=== PATIENT | female | born 1955 | race Two or more races ===

== ENCOUNTER 2025-01-10 09:35 | Inpatient (IN) | payer MEDICARE, OTHER ==
[~2025-01-10] VITALS: Ht 160 cm; Wt 74.0 kg
--- NOTE | 2025-01-10 11:03 | ED.PDOC ---
Eye-HPI HPI Comments 69-year-old female with a history of hypertension and diabetes brought in by family for evaluation of right sided upper oral pain and right facial pain and swelling, onset 3 days ago. Patient states she had a dental cleaning 5 days ago during which she had a local anesthetic injection in her right upper mouth. She states she did not have any other dental intervention aside from the cleaning. She states 2 days later she developed pain and swelling in her right upper mouth area which spread to the right side of her face, associated with a severe right- sided headache. She denies any fever, vision changes, nausea, vomiting or focal weakness. Chief Complaint: Headache Time Seen by MD: 10:45 Reviewed Notes: Nurses Notes, Medications, Allergies Information Source: Patient, Relative (GrandChild) Mode of Arrival: Ambulatory Timing: Days Duration: Since onset Past Medical History PAST MEDICAL HISTORY: DM, HTN Surgical History (Other): C-spine surgery FINANCIAL ACCOUNTANT History: Denies all FINANCIAL ACCOUNTANT Hx Family History Family History: Reviewed,noncontributory to illness Social History Smoker: Non-Smoker Alcohol: Denies ETOH Use Drugs: Denies Drug Use Lives In: Home All Other Systems: Reviewed and Negative (Comprehensive systems review obtained and negative except for what is stated in the HPI.) Physical Exam General Appearance: Mild Distress HEENT: Other (Pupils symmetric. Right upper gingival soft tissue tenderness and swelling, right mid facial and infraorbital erythema, moderate edema and tenderness.) Neck: Full Range of Motion, Normal Inspection Respiratory: Lungs Clear, No Accessory Muscle Use, No Respiratory Distress, Normal Breath Sounds Cardiovascular: No Edema, No JVD, Regular Rate/Rhythm Breast Exam: Deferred Gastrointestinal: Non Tender, Soft Genitalia: Deferred Pelvic: Deferred Rectal: Deferred Extremities: Normal inspection, Normal range of motion, Non-tender, No pedal edema Neurologic: Alert (Oriented x4), Normal Affect, Normal Mood, Other (Ambulatory) Cerebellar Function: NOT DONE Reflexes: NOT DONE Skin: Dry, Normal Color, Warm Lymphatic: NOT DONE Was a procedure done? Was a procedure done?: No EENT DIFF Eye: N/A Ear: N/A Nose: N/A Mouth: Other (Gingivitis, dental caries, dental abscess, facial cellulitis/abscess, allergic reaction, among others) X-Ray, Labs, Meds, VS Vital Signs Date Time Temp Pulse Resp B/P (MAP) Pulse Ox O2 Delivery O2 Flow Rate FiO2 01/10/25 12:38 99.9 93 17 105/65 (78) 95 99.9 01/10/25 12:37 93 17 105/65 01/10/25 12:15 84 20 98 Room Air* 0 21 01/10/25 12:07 108 20 109/93 01/10/25 12:07 99.3 107 20 109/93 (98) 95 99.3 01/10/25 12:07 107 20 95 Room Air 01/10/25 09:37 98.4 120 18 118/80 96 98.4 Lab Test 01/10/25 11:11 Range/Units White Blood Count 21.3 H 4.4-10.8 10^3/uL Red Blood Count 6.09 H 4.0-5.20 10^6/uL Hemoglobin 16.8 H 12.2-16.2 g/dL Hematocrit 50.1 H 36.0-46.0 % Mean Corpuscular Volume 82.2 80.0-100.0 fL Mean Corpuscular Hemoglobin 27.5 L 28.0-32.0 pg Mean Corpuscular Hemoglobin Concent 33.5 32.0-36.0 g/dL Red Cell Distribution Width 15.3 H 11.8-14.3 % Platelet Count 416 140-450 10^3/uL Mean Platelet Volume 9.0 6.9-10.8 fL Neutrophils (%) (Auto) 83.4 H 37.0-80.0 % Lymphocytes (%) (Auto) 6.8 L 10.0-50.0 % Monocytes (%) (Auto) 8.9 0.0-12.0 % Eosinophils (%) (Auto) 0.2 0.0-7.0 % Basophils (%) (Auto) 0.7 0.0-2.0 % Neutrophils # (Auto) 17.8 H 1.6-8.6 10 ^3/uL Lymphocytes # (Auto) 1.4 0.4-5.4 10 ^3/uL Monocytes # (Auto) 1.9 H 0-1.3 10 ^3/uL Eosinophils # (Auto) 0 0-0.8 10 ^3/uL Basophils # (Auto) 0.2 0-0.2 10 ^3/uL Nucleated Red Blood Cells 0.0 % Sodium Level 138 136-145 mmol/L Potassium Level 4.1 3.5-5.1 mmol/L Chloride Level 102 98-107 mmol/L Carbon Dioxide Level 23 20-31 mmol/L Anion Gap 13 5-15 Blood Urea Nitrogen 16 9-23 mg/dL Creatinine 0.82 0.550-1.02 mg/dL Glomerular Filtration Rate Calc 78 >90 mL/min BUN/Creatinine Ratio 19.5 10.0-20.0 Serum Glucose 144 H 74-106 mg/dL Lactic Acid Level 1.9 0.4-2.0 mmol/L Calcium Level 10.2 8.7-10.4 mg/dL Current Medications Medications (Trade) Dose Ordered Sig/Hasmukh Route Start Time Stop Time Status Last Admin Morphine Sulfate 4 mg ONCE ONCE IV 01/10/25 11:00 01/10/25 11:02 DC 01/10/25 12:07 Ondansetron HCl (Zofran) 4 mg ONCE ONCE IV 01/10/25 11:00 01/10/25 11:02 DC 01/10/25 12:07 Clindamycin Phosphate 50 ml @ 50 mls/hr ONCE ONCE IV 01/10/25 11:00 01/10/25 11:59 DC 01/10/25 12:08 PROCEDURE(s): FAC2C - MAXILLOFACIAL WITHOUT REASON: Right facial swelling after dental cleaning ORDER NUMBER(s): [id number], ACCESSION NUMBER(s): [id number] CT MAXILLOFACIAL WITHOUT INDICATION: Right facial swelling after dental cleaning EXAM DATE: 01/10/2025 11:28 AM COMPARISON: None RADIATION DOSE: CTDIvol: 66.97 mGy, DLP: 1230.21 mGy*cm PROCEDURE: Using the CT scanner, contiguous noncontrast scans were obtained from above the orbital rims to below the mandible. Coronal and sagittal reformatted images were then generated. All CT scans at this medical facility are performed using dose modulation techniques as appropriate to a performed exam including the following: Automated exposure control was utilized; adjustment of the MA and/or KV according to patient size; and use of iterative reconstruction technique. FINDINGS: The facial bones, including the orbits and paranasal sinuses are intact without evidence of fracture. The paranasal sinuses, mastoid air cells and middle ear cavities are normally aerated. The orbital contents are normal. Mild right upper lip and malar soft tissue edema. Post surgical changes from cervical spinal hardware with laminectomy changes are noted. IMPRESSION: Mild right upper lip and malar soft tissue edema. No acute fracture CT findings of the maxillofacial region. X-Ray, Labs, Meds, VS Comment 69-year-old female with a history of hypertension and diabetes presenting with right upper mouth and right facial pain, swelling and headache 2 days after a dental cleaning during which she received a local anesthetic injection in her upper mouth area Initial vitals remarkable for heart rate 120 Exam remarkable for right upper oral and right mid facial and infraorbital swelling, tenderness and erythema Rhythm strip independently interpreted by me: Sinus tach, rate 120, no ectopy. CT maxillofacial IMPRESSION: Mild right upper lip and malar soft tissue edema. No acute fracture CT findings of the maxillofacial region. CBC remarkable for WBC 21.3, basic metabolic panel unremarkable, lactate 1.9 Patient treated with the following in the ED: 1 L 0.9 normal saline IV bolus, clindamycin 900 mg IV, morphine 4 mg IV, Zofran 4 mg IV On re-evaluation, patient states pain has improved. Vitals were stable. Plan is to admit the patient for IV antibiotics and pain control. Time of 1ST Reevaluation: 11:15 Reevaluation 1ST: Unchanged Patient Education/Counseling: Diagnosis, Treatment, Need For Follow Up Family Education/Counseling: Diagnosis, Treatment SEPSIS Sepsis Screen Date sepsis recognized/suspect: Jan 10, 2025 Time Sepsis recognized/suspect: 0940 Recent Procedure: Yes On Antibiotic Therapy: No Respiratory Rate >20: No Heart Rate >90: Yes Temp<36 C (96.8 F) or >38.3 C: No SBP <90 or MAP <65 mmHG: No New Acute Mental Status Change: No Is the patient on CPAP, BIPAP,: No SEPSIS EXCLUSION NOTE: Sepsis Exclusion Note: Patient presents with SIRS criteria, but the SIRS response is attributed to [pa in ], not sepsis. Sepsis bundle is not initiated at this time, due to this reason. Further management will focus on the treatment of the above condition (s). Physician Orders Blood Culture (01/10/25 10:58) Maxillofacial Without (01/10/25 10:58) Saline Lock (01/10/25 11:28) Vital Signs Date Time Temp Pulse Resp B/P (MAP) Pulse Ox O2 Delivery O2 Flow Rate FiO2 01/10/25 12:38 99.9 93 17 105/65 (78) 95 99.9 01/10/25 12:37 93 17 105/65 01/10/25 12:15 84 20 98 Room Air* 0 21 01/10/25 12:07 108 20 109/93 01/10/25 12:07 99.3 107 20 109/93 (98) 95 99.3 01/10/25 12:07 107 20 95 Room Air 01/10/25 09:37 98.4 120 18 118/80 96 98.4 Laboratory Tests Test 01/10/25 11:11 Lactic Acid Level 1.9 mmol/L (0.4-2.0) White Blood Count 21.3 10^3/uL (4.4-10.8) H Medications Medications Dose Ordered Sig/Hasmukh Route Start Time Stop Time Status Last Admin Dose Admin Clindamycin Phosphate 50 ml @ 50 mls/hr ONCE ONCE IV 01/10/25 11:00 01/10/25 11:59 DC 01/10/25 12:08 Morphine Sulfate 4 mg ONCE ONCE IV 01/10/25 11:00 01/10/25 11:02 DC 01/10/25 12:07 Ondansetron HCl 4 mg ONCE ONCE IV 01/10/25 11:00 01/10/25 11:02 DC 01/10/25 12:07 Departure 1 Departure Time of Disposition: 14:00 Impression: Primary Impression: Facial cellulitis Disposition: ADMITTED INPATIENT Admit to: Med Surg Condition: Guarded Critical Care Note Critical Care Time?: No Stability Stability form required: No Heart Score Heart Score: Heart Score Response (Comments) Value History N/A 0 EKG N/A 0 Age N/A 0 Risk Factors N/A 0 Troponin N/A 0 Total 0 I personally scribed for CARLOS SHELBY MD ([email or web address]) on 01/10/25 at 11:03. Electronically submitted by Fran Quick ([email or web address]). CARLOS SHELBY MD Jan 10, 2025 11:03
[2025-01-10 11:25] LABS: Hematocrit 50.1 % (36.0-46.0); Hemoglobin 16.8 g/dL (12.2-16.2); Mean Corpuscular Hemoglobin 27.5 pg (28.0-32.0); Mean Corpuscular Volume 82.2 fL (80.0-100.0); Nucleated Red Blood Cells % 0.0 %
[2025-01-10 11:42] LABS: Anion Gap 13 (5-15); Carbon Dioxide 23 mmol/L (20-31); Chloride 102 mmol/L (98-107); Potassium 4.1 mmol/L (3.5-5.1); Sodium 138 mmol/L (136-145)
[2025-01-10 11:43] LABS: Calcium 10.2 mg/dL (8.7-10.4)
[2025-01-10 11:48] LABS: BUN/Creatinine Ratio 19.5 (10.0-20.0); Blood Urea Nitrogen 16 mg/dL (9-23); Glucose 144 mg/dL (74-106)
[2025-01-10] MEDS: ONDANSETRON HCL 4 MG/2 ML VIAL IV ONE (12:07)
[2025-01-10] MEDS: MORPHINE SULFATE 4 MG/ML SYR/VIAL IV ONE (12:07)
[2025-01-10] MEDS: CLINDAMYCIN 900MG IV 50 ML IV ONE (12:08)
[2025-01-10 12:15] VITALS: PULSE 84; RESP 20; O2SAT 98
--- NOTE | 2025-01-10 12:26 | DVH ---
CT MAXILLOFACIAL WITHOUT INDICATION: Right facial swelling after dental cleaning EXAM DATE: 01/10/2025 11:28 AM COMPARISON: None RADIATION DOSE: CTDIvol: 66.97 mGy, DLP: 1230.21 mGy*cm PROCEDURE: Using the CT scanner, contiguous noncontrast scans were obtained from above the orbital ri ms to below the mandible. Coronal and sagittal reformatted images were then generated. All CT scans at this medical facility are performed using dose modulation techniques as appropriate t o a performed exam including the following: Automated exposure control was utilized; adjustment of th e MA and/or KV according to patient size; and use of iterative reconstruction technique. FINDINGS: The facial bones, including the orbits and paranasal sinuses are intact without evidence of fracture. The paranasal sinuses, mastoid air cells and middle ear cavities are normally aerated. The orbital contents are normal. Mild right upper lip and malar soft tissue edema. Post surgical changes from cervical spinal hardware with laminectomy changes are noted. IMPRESSION: Mild right upper lip and malar soft tissue edema. No acute fracture CT findings of the maxillofacial region.
--- NOTE | 2025-01-10 14:36 | DVHHP2 ---
Admitting Diagnosis: face pain History of Present Illness 69-year-old female with a history of hypertension and diabetes brought in by family for evaluation of right sided upper oral pain and right facial pain and swelling, onset 3 days ago. Patient states she had a dental cleaning 5 days ago during which she had a local anesthetic injection in her right upper mouth. She states she did not have any other dental intervention aside from the cleaning. She states 2 days later she developed pain and swelling in her right upper mouth area which spread to the right side of her face, associated with a severe right- sided headache. She denies any fever, vision changes, nausea, vomiting or focal weakness. PAST MEDICAL HISTORY: DM, HTN Surgical History (Other): C-spine surgery POLISHER ALUMINUM History: Denies all POLISHER ALUMINUM Hx Family History Family History: Reviewed,noncontributory to illness Social History Smoker: Non-Smoker Alcohol: Denies ETOH Use Drugs: Denies Drug Use Lives In: Home Allergies: Coded Allergies: NO KNOWN ALLERGIES (Unverified , 01/10/25) Vital Signs Vital Signs Date Time Temp Pulse Resp B/P (MAP) Pulse Ox O2 Delivery O2 Flow Rate FiO2 01/10/25 12:38 99.9 93 17 105/65 (78) 95 99.9 01/10/25 12:15 Room Air* 0 21 Physical Exam Generally 69 years old woman, well nourished well developed. Mild distress HEENT-atraumatic normocephalic , right maxillary facial edema with the pain Heart-regular rate and rhythm Lungs clear to auscultate bilaterally Abdomen soft nontender nondistended Musculoskeletal-no edema cyanosis Neuro-AO x3, no focal deficits SEPSIS Sepsis Screen Date sepsis recognized/suspect: Jan 10, 2025 Time Sepsis recognized/suspect: 09 Recent Procedure: Yes On Antibiotic Therapy: No Respiratory Rate >20: No Heart Rate >90: Yes Temp<36 C (96.8 F) or >38.3 C: No SBP <90 or MAP <65 mmHG: No New Acute Mental Status Change: No Is the patient on CPAP, BIPAP,: No Physician Orders Blood Culture (01/10/25 10:58) Maxillofacial Without (01/10/25 10:58) Saline Lock (01/10/25 11:28) Regular Diet (01/10/25 Dinner) Unasyn Ampicillin/Sulbactam (01/10/25 16:45) Admit (01/10/25 16:33) Code Status (01/10/25 16:) Vital Signs .PER UNIT PROTOCOL (01/10/25 16:33) Review Orders With Adm. (01/10/25 16:33) Encourage Activity As Tolerate (01/10/25 16:33) Sodium Chloride Lock (Saline Lock Ns) (01/10/25 22:00) Docusate Sodium Capsule (Colace Capsule) (01/10/25 16:45) Acetaminophen Tablet (Tylenol Tablet) (01/10/25 16:45) Notify Md Of Changes From Base (01/10/25 16:33) Advance Directive (01/10/25 16:33) Patient Condition (01/10/25 16:) Allergies (01/10/25 16:33) Hydrocodone-Acet 5/325mg Tab (Garfield 5/32 (01/10/25 16:45) Hydromorphone Injection (Dilaudid Inject (01/10/25 16:45) Ondansetron Hcl (Zofran) (01/10/25 16:45) Lovenox 40mg (01/11/25 10:00) Vital Signs Date Time Temp Pulse Resp B/P (MAP) Pulse Ox O2 Delivery O2 Flow Rate FiO2 01/10/25 12:38 99.9 93 17 105/65 (78) 95 99.9 01/10/25 12:37 93 17 105/65 01/10/25 12:15 84 20 98 Room Air* 0 21 01/10/25 12:07 108 20 109/93 01/10/25 12:07 99.3 107 20 109/93 (98) 95 99.3 01/10/25 12:07 107 20 95 Room Air 01/10/25 09:37 98.4 120 18 118/80 96 98.4 Laboratory Tests Test 01/10/25 11:11 Lactic Acid Level 1.9 mmol/L (0.4-2.0) White Blood Count 21.3 10^3/uL (4.4-10.8) H Medications Medications Dose Ordered Sig/Hasmukh Route Start Time Stop Time Status Last Admin Dose Admin Clindamycin Phosphate 50 ml @ 50 mls/hr ONCE ONCE IV 01/10/25 11:00 01/10/25 11:59 DC 01/10/25 12:08 Lactated Ringer's 1,550 ml @ 1,550 mls/hr ONCE ONCE IV 01/10/25 14:15 01/10/25 15:14 DC 01/10/25 14:51 Morphine Sulfate 4 mg ONCE ONCE IV 01/10/25 11:00 01/10/25 11:02 DC 01/10/25 12:07 Ondansetron HCl 4 mg ONCE ONCE IV 01/10/25 11:00 01/10/25 11:02 DC 01/10/25 12:07 Results Labs Test 01/10/25 11:11 Range/Units White Blood Count 21.3 H 4.4-10.8 10^3/uL Red Blood Count 6.09 H 4.0-5.20 10^6/uL Hemoglobin 16.8 H 12.2-16.2 g/dL Hematocrit 50.1 H 36.0-46.0 % Mean Corpuscular Volume 82.2 80.0-100.0 fL Mean Corpuscular Hemoglobin 27.5 L 28.0-32.0 pg Mean Corpuscular Hemoglobin Concent 33.5 32.0-36.0 g/dL Red Cell Distribution Width 15.3 H 11.8-14.3 % Platelet Count 416 140-450 10^3/uL Mean Platelet Volume 9.0 6.9-10.8 fL Neutrophils (%) (Auto) 83.4 H 37.0-80.0 % Lymphocytes (%) (Auto) 6.8 L 10.0-50.0 % Monocytes (%) (Auto) 8.9 0.0-12.0 % Eosinophils (%) (Auto) 0.2 0.0-7.0 % Basophils (%) (Auto) 0.7 0.0-2.0 % Neutrophils # (Auto) 17.8 H 1.6-8.6 10 ^3/uL Lymphocytes # (Auto) 1.4 0.4-5.4 10 ^3/uL Monocytes # (Auto) 1.9 H 0-1.3 10 ^3/uL Eosinophils # (Auto) 0 0-0.8 10 ^3/uL Basophils # (Auto) 0.2 0-0.2 10 ^3/uL Nucleated Red Blood Cells 0.0 % Sodium Level 138 136-145 mmol/L Potassium Level 4.1 3.5-5.1 mmol/L Chloride Level 102 98-107 mmol/L Carbon Dioxide Level 23 20-31 mmol/L Anion Gap 13 5-15 Blood Urea Nitrogen 16 9-23 mg/dL Creatinine 0.82 0.550-1.02 mg/dL Glomerular Filtration Rate Calc 78 >90 mL/min BUN/Creatinine Ratio 19.5 10.0-20.0 Serum Glucose 144 H 74-106 mg/dL Lactic Acid Level 1.9 0.4-2.0 mmol/L Calcium Level 10.2 8.7-10.4 mg/dL Primary Diagnosis Right upper dental infection with the edema Plan Patient says the patient has had two falls few days ago and developed pain on right upper region. Then became swollen Start Unasyn for IV antibiotics Monitored edema and pain . Can switch to p.o. one pain and swelling is improved Pain control Regular diet IV fluids Full code Lovenox for DVT prophylaxis No GI prophylaxis needed Plan discussed with: Patient Date of Service: Jan 10, 2025 Billing Provider: SELENE PARRISH MD Common Visit Codes: [id number] INP/OBS CARE (MOD) SELENE PARRISH MD Jan 10, 2025 14:36
[2025-01-10] MEDS: LACTATED RINGER'S 1,550 ML IV ONE (14:51)
[2025-01-10] MEDS ORDERED: ACETAMINOPHEN 325 MG TAB PO PRN ×2 (16:45→21:55)
[2025-01-10] MEDS ORDERED: ONDANSETRON HCL 4 MG/2 ML VIAL IV PRN (16:45)
[2025-01-10] MEDS ORDERED: DOCUSATE SOD 100 MG CAP PO PRN (16:45)
[2025-01-10 17:43] VITALS: BP 154/80; PULSE 97; RESP 18; TEMP 99.1; O2SAT 99
[2025-01-10 18:00] VITALS: BP 144/77; PULSE 91; RESP 18; TEMP 98.6; O2SAT 98
[2025-01-10 18:08] VITALS: PULSE 91; RESP 18; O2SAT 98
[2025-01-10] MEDS: AMPICILLIN & SULBACTAM SODIUM 3 GM in SODIUM CHL 0.9% 100 ML IV SCH ×2 (18:44→23:48)
[2025-01-10] MEDS: SODIUM CHLORIDE 0.9% 1,000 ML IV ONE (18:44)
[2025-01-10] MEDS: HYDROcodone-ACET 5/325MG TAB PO PRN (20:31)
[2025-01-10 21:00] VITALS: BP 156/79; PULSE 87; RESP 16; TEMP 99.1; O2SAT 97
[2025-01-10] MEDS: SODIUM CHLOR 0.9% PF (SALINE LOCK) 10ML VIAL/SYR IV SCH (21:54)
[2025-01-11] VITALS (9 sets, daily range): BP systolic 140–146; BP diastolic 71–78; PULSE 80–93; RESP 16–20; TEMP 98.4–99.6; O2SAT 91–96
[2025-01-11] MEDS: HYDROmorphone HCL 2 MG/ML VL/or syr IV PRN (00:57)
[2025-01-11] MEDS: ENOXAPARIN SOD 40 MG/0.4 ML SYRINGE SC SCH (09:38)
--- NOTE | 2025-01-11 12:55 | DVHPN2 ---
Reviewed: Care Plan, H&P, Labs, Medications, Previous Orders, Radiology Changes from previous H/P or p: No Changes Objective Vitals Vital Signs Date Time Temp Pulse Resp B/P (MAP) Pulse Ox O2 Delivery O2 Flow Rate FiO2 01/11/25 09:29 99.6 88 16 140/72 (94) 95 99.6 01/11/25 08:00 Room Air* 0 21 Intake/Output Intake and Output 01/11/25 07:00 Intake Total 300 ml Balance 300 ml Intake Oral 250 ml IV Total 50 ml # Voids 3 Medications Current Medications Medications Dose Ordered Sig/Hasmukh Route Start Time Stop Time Status Last Admin Dose Admin Sodium Chloride 10 ml Q8HR IV 01/10/25 22:00 01/11/25 06:12 10 ML Docusate Sodium 100 mg BIDPRN PRN PO 01/10/25 16:45 Acetaminophen/ Hydrocodone Bitart 1 tab Q4HP PRN PO 01/10/25 16:45 01/10/25 20:31 1 TAB Hydromorphone HCl 0.5 mg Q4HP PRN IV 01/10/25 16:45 01/11/25 00:57 0.5 MG Ondansetron HCl 4 mg Q4HP PRN IV 01/10/25 16:45 Enoxaparin Sodium 40 mg DAILY SC 01/11/25 10:00 Acetaminophen 650 mg Q6HP PRN PO 01/10/25 21:55 Ampicillin Sodium/ Sulbactam Sodium 3 gm/Sodium Chloride 100 ml @ 100 mls/hr Q6H IV 01/11/25 00:00 01/11/25 07:39 100 MLS/HR Laboratory Results Laboratory Tests 01/10/25 11:11 Microbiology Microbiology Date/Time Source Procedure Growth Status 01/10/25 11:11 Blood Blood Culture - Preliminary NO GROWTH AFTER 24 HOURS OF INCUBATION. Resulted Labs and/or images reviewed: Labs reviewed by me, Image(s) reviewed by me Assessment/Plan Assessment/Plan [place] [id number] secondary to right facial infection Cellulitis right face secondary to recent dental extraction five days back: Unasyn q.6 hours, pain medication Acute dehydration: IV fluids Diabetes Hypertension Garnd daughter Magali [phone] at bedside and is the county administrator Plan discussed with: Patient Date of Service: Jan 11, 2025 Billing Provider: SUSHILA ELKINS MD Common Visit Codes: [id number] INP/OBS CARE(HIGH) SUSHILA ELKINS MD Jan 11, 2025 12:55
[2025-01-11] MEDS: SODIUM CHLORIDE 0.9% 1,000 ML IV SCH (13:40)
[2025-01-11] MEDS: GENTAMICIN OPTH sol 0.3% 5ml RIGHTEYE SCH (17:52)
[2025-01-11] MEDS ORDERED: GENTAMICIN SULF 0.3% OPTH(EYE) OINT 3.5GM RIGHTEYE SCH (18:00)
[2025-01-12] VITALS (7 sets, daily range): BP systolic 138–151; BP diastolic 71–81; PULSE 18–83; RESP 12–20; TEMP 97–98.4; O2SAT 92–97
[2025-01-12 05:40] LABS: Hematocrit 40.5 % (36.0-46.0); Hemoglobin 13.7 g/dL (12.2-16.2); Mean Corpuscular Hemoglobin 27.7 pg (28.0-32.0); Mean Corpuscular Volume 81.8 fL (80.0-100.0); Nucleated Red Blood Cells % 0.0 %
--- NOTE | 2025-01-12 08:23 | DVHPN2 ---
Reviewed: Care Plan, H&P, Labs, Medications, Previous Orders, Radiology Changes from previous H/P or p: No Changes Objective Vitals Vital Signs Date Time Temp Pulse Resp B/P (MAP) Pulse Ox O2 Delivery O2 Flow Rate FiO2 01/12/25 04:45 98.2 18 16 151/81 (104) 92 98.2 01/11/25 20:00 Room Air* 0 21 Intake/Output Intake and Output 01/12/25 06:59 Intake Total 2670 ml Balance 2670 ml Intake Oral 2070 ml IV Total 600 ml # Voids 10 Medications Current Medications Medications Dose Ordered Sig/Hasmukh Route Start Time Stop Time Status Last Admin Dose Admin Sodium Chloride 10 ml Q8HR IV 01/10/25 22:00 01/12/25 05:28 10 ML Docusate Sodium 100 mg BIDPRN PRN PO 01/10/25 16:45 Acetaminophen/ Hydrocodone Bitart 1 tab Q4HP PRN PO 01/10/25 16:45 01/12/25 04:44 1 TAB Hydromorphone HCl 0.5 mg Q4HP PRN IV 01/10/25 16:45 01/11/25 00:57 0.5 MG Ondansetron HCl 4 mg Q4HP PRN IV 01/10/25 16:45 Enoxaparin Sodium 40 mg DAILY SC 01/11/25 10:00 Acetaminophen 650 mg Q6HP PRN PO 01/10/25 21:55 Ampicillin Sodium/ Sulbactam Sodium 3 gm/Sodium Chloride 100 ml @ 100 mls/hr Q6H IV 01/11/25 00:00 01/12/25 05:28 100 MLS/HR Sodium Chloride 1,000 ml @ 125 mls/hr Q8H IV 01/11/25 13:15 01/12/25 05:01 125 MLS/HR Gentamicin Sulfate 1 drop Q6HR RIGHTEYE 01/11/25 18:00 01/12/25 05:28 1 DROP Laboratory Results Laboratory Tests 01/10/25 11:11 01/12/25 05:00 Microbiology Microbiology Date/Time Source Procedure Growth Status 01/10/25 11:11 Blood Blood Culture - Preliminary NO GROWTH AFTER 24 HOURS OF INCUBATION. Resulted Labs and/or images reviewed: Labs reviewed by me, Image(s) reviewed by me Assessment/Plan Assessment/Plan [place] [address] secondary to right facial infection Cellulitis right face secondary to recent dental extraction five days back: Unasyn q.6 hours, pain medication Acute dehydration: IV fluids Diabetes Hypertension Demar daughter Magali [phone] at bedside and is the family centered specialist Continue current management Plan discussed with: Patient My Orders Orders - SUSHILA ELKINS MD Procedure Category Date Status Time Sodium Chloride 0.9% PHA 01/11/25 In Process 13:15 Gentamicin Opth Cathy PHA 01/11/25 In Process 0.3% 5ml (Garamycin 18:00 Complete Blood Count LAB 01/13/25 Verified 04:00 Complete Blood Count LAB 01/14/25 Verified 04:00 Complete Blood Count LAB 01/15/25 Verified 04:00 Date of Service: Jan 12, 2025 Billing Provider: SUSHILA ELKINS MD Common Visit Codes: [id number] INP/OBS CARE(HIGH) SUSHILA ELKINS MD Jan 12, 2025 08:23
[2025-01-13] VITALS (7 sets, daily range): BP systolic 138–158; BP diastolic 77–92; PULSE 66–83; RESP 17–21; TEMP 96.8–99.3; O2SAT 95–100
[2025-01-13 06:02] LABS: Hematocrit 39.7 % (36.0-46.0); Hemoglobin 13.1 g/dL (12.2-16.2); Mean Corpuscular Hemoglobin 27.5 pg (28.0-32.0); Mean Corpuscular Volume 83.3 fL (80.0-100.0); Nucleated Red Blood Cells % 0.1 %
--- NOTE | 2025-01-13 09:26 | DVHPN2 ---
Reviewed: Care Plan, H&P, Labs, Medications, Previous Orders, Radiology Changes from previous H/P or p: No Changes Objective Vitals Vital Signs Date Time Temp Pulse Resp B/P (MAP) Pulse Ox O2 Delivery O2 Flow Rate FiO2 01/13/25 09:04 98.6 83 20 149/85 (106) 98 98.6 01/12/25 20:00 Room Air* 0 21 Intake/Output Intake and Output 01/13/25 07:00 Intake Total 2240 ml Output Total 0 ml Balance 2240 ml Intake Oral 890 ml IV Total 1350 ml Output Stool Total 0 ml # Voids 7 Medications Current Medications Medications Dose Ordered Sig/Hasmukh Route Start Time Stop Time Status Last Admin Dose Admin Sodium Chloride 10 ml Q8HR IV 01/10/25 22:00 01/13/25 05:54 10 ML Docusate Sodium 100 mg BIDPRN PRN PO 01/10/25 16:45 Acetaminophen/ Hydrocodone Bitart 1 tab Q4HP PRN PO 01/10/25 16:45 01/12/25 04:44 1 TAB Hydromorphone HCl 0.5 mg Q4HP PRN IV 01/10/25 16:45 01/11/25 00:57 0.5 MG Ondansetron HCl 4 mg Q4HP PRN IV 01/10/25 16:45 Enoxaparin Sodium 40 mg DAILY SC 01/11/25 10:00 01/13/25 09:08 40 MG Acetaminophen 650 mg Q6HP PRN PO 01/10/25 21:55 Ampicillin Sodium/ Sulbactam Sodium 3 gm/Sodium Chloride 100 ml @ 100 mls/hr Q6H IV 01/11/25 00:00 01/13/25 05:58 100 MLS/HR Sodium Chloride 1,000 ml @ 125 mls/hr Q8H IV 01/11/25 13:15 01/12/25 15:39 125 MLS/HR Gentamicin Sulfate 1 drop Q6HR RIGHTEYE 01/11/25 18:00 01/13/25 00:21 1 DROP Laboratory Results Laboratory Tests 01/10/25 11:11 01/13/25 04:54 Microbiology Microbiology Date/Time Source Procedure Growth Status 01/10/25 11:11 Blood Blood Culture - Preliminary NO GROWTH AFTER 48 HOURS OF INCUBATION. Resulted Labs and/or images reviewed: Labs reviewed by me, Image(s) reviewed by me Assessment/Plan Assessment/Plan [place] [address] secondary to right facial infection Cellulitis right face secondary to recent dental extraction five days back: Unasyn 3g IV q.6 hours, pain medication Acute dehydration: IV fluids Diabetes Hypertension [place] daughter Magali [phone] at bedside and is the plastic fabricator Continue current management Plan discussed with: Patient Date of Service: Jan 13, 2025 Billing Provider: SUSHILA ELKINS MD Common Visit Codes: [id number] INP/OBS CARE(HIGH) SUSHILA ELKINS MD Jan 13, 2025 09:26
[2025-01-13] MEDS: BENAZEPRIL HCL 10 MG TAB PO SCH (18:13)
[2025-01-14] VITALS (7 sets, daily range): BP systolic 136–158; BP diastolic 71–89; PULSE 59–85; RESP 17–20; TEMP 97.5–98; O2SAT 96–100
[2025-01-14 07:06] LABS: Hematocrit 40.1 % (36.0-46.0); Hemoglobin 13.3 g/dL (12.2-16.2); Mean Corpuscular Hemoglobin 27.3 pg (28.0-32.0); Mean Corpuscular Volume 82.4 fL (80.0-100.0); Nucleated Red Blood Cells % 0.3 %
--- NOTE | 2025-01-14 09:45 | DVHPN2 ---
Reviewed: Care Plan, H&P, Labs, Medications, Previous Orders, Radiology Changes from previous H/P or p: No Changes Objective Vitals Vital Signs Date Time Temp Pulse Resp B/P (MAP) Pulse Ox O2 Delivery O2 Flow Rate FiO2 01/14/25 09:07 158/89 01/14/25 08:24 97.9 75 18 97 97.9 01/13/25 20:30 Room Air* 0 21 Intake/Output Intake and Output 01/14/25 07:00 Intake Total 3800 ml Balance 3800 ml Intake Oral 2000 ml IV Total 1800 ml # Voids 8 # Bowel Movements 1 Medications Current Medications Medications Dose Ordered Sig/Hasmukh Route Start Time Stop Time Status Last Admin Dose Admin Sodium Chloride 10 ml Q8HR IV 01/10/25 22:00 01/14/25 05:38 10 ML Docusate Sodium 100 mg BIDPRN PRN PO 01/10/25 16:45 Acetaminophen/ Hydrocodone Bitart 1 tab Q4HP PRN PO 01/10/25 16:45 01/12/25 04:44 1 TAB Hydromorphone HCl 0.5 mg Q4HP PRN IV 01/10/25 16:45 01/11/25 00:57 0.5 MG Ondansetron HCl 4 mg Q4HP PRN IV 01/10/25 16:45 Enoxaparin Sodium 40 mg DAILY SC 01/11/25 10:00 01/14/25 09:08 40 MG Acetaminophen 650 mg Q6HP PRN PO 01/10/25 21:55 Ampicillin Sodium/ Sulbactam Sodium 3 gm/Sodium Chloride 100 ml @ 100 mls/hr Q6H IV 01/11/25 00:00 01/14/25 05:38 100 MLS/HR Sodium Chloride 1,000 ml @ 125 mls/hr Q8H IV 01/11/25 13:15 01/14/25 05:12 125 MLS/HR Gentamicin Sulfate 1 drop Q6HR RIGHTEYE 01/11/25 18:00 01/14/25 05:38 1 DROP Benazepril HCl 30 mg DAILY PO 01/13/25 18:00 01/14/25 09:07 30 MG Laboratory Results Laboratory Tests 01/10/25 11:11 01/14/25 05:42 Microbiology Microbiology Date/Time Source Procedure Growth Status 01/10/25 11:11 Blood Blood Culture - Preliminary NO GROWTH AFTER 72 HOURS OF INCUBATION. Resulted Assessment/Plan Assessment/Plan [place] [address] secondary to right facial infection improving Cellulitis right face secondary to recent dental extraction five days back: Unasyn 3g IV q.6 hours, pain medication Acute dehydration: IV fluids Diabetes Hypertension [place] daughters Magali [phone] and Karyn [phone] at bedside and is the self propelled mining machine operator Patient is discharged to shelter facility for two weeks of IV antibiotics. Plan is acceptable to the patient and granddaughter Plan discussed with: Patient Date of Service: Jan 14, 2025 Billing Provider: SUSHILA ELKINS MD Common Visit Codes: [id number] INP/OBS CARE(HIGH) SUSHILA ELKINS MD Jan 14, 2025 09:45
--- NOTE | 2025-01-14 09:52 | DVHDS2 ---
Discharge Summary Date of Admission Jan 10, 2025 at 16:33 Date of Discharge: Jan 14, 2025 Admitting Diagnosis Swelling of the face in the right side secondary to dental extraction Wounds: Severe cellulitis right face Labs/Diagnostic Data: Laboratory Results Test 01/14/25 05:42 01/10/25 11:11 White Blood Count 12.4 10^3/uL (4.4-10.8) Red Blood Count 4.87 10^6/uL (4.0-5.20) Hemoglobin 13.3 g/dL (12.2-16.2) Hematocrit 40.1 % (36.0-46.0) Mean Corpuscular Volume 82.4 fL (80.0-100.0) Mean Corpuscular Hemoglobin 27.3 pg (28.0-32.0) Mean Corpuscular Hemoglobin Concent 33.1 g/dL (32.0-36.0) Red Cell Distribution Width 15.3 % (11.8-14.3) Platelet Count 441 10^3/uL (140-450) Mean Platelet Volume 8.6 fL (6.9-10.8) Neutrophils (%) (Auto) 66.0 % (37.0-80.0) Lymphocytes (%) (Auto) 22.2 % (10.0-50.0) Monocytes (%) (Auto) 8.1 % (0.0-12.0) Eosinophils (%) (Auto) 3.2 % (0.0-7.0) Basophils (%) (Auto) 0.5 % (0.0-2.0) Neutrophils # (Auto) 8.2 10 ^3/uL (1.6-8.6) Lymphocytes # (Auto) 2.7 10 ^3/uL (0.4-5.4) Monocytes # (Auto) 1.0 10 ^3/uL (0-1.3) Eosinophils # (Auto) 0.4 10 ^3/uL (0-0.8) Basophils # (Auto) 0.1 10 ^3/uL (0-0.2) Nucleated Red Blood Cells 0.3 % Sodium Level 138 mmol/L (136-145) Potassium Level 4.1 mmol/L (3.5-5.1) Chloride Level 102 mmol/L (98-107) Carbon Dioxide Level 23 mmol/L (20-31) Anion Gap 13 (5-15) Blood Urea Nitrogen 16 mg/dL (9-23) Creatinine 0.82 mg/dL (0.550-1.02) Glomerular Filtration Rate Calc 78 mL/min (>90) BUN/Creatinine Ratio 19.5 (10.0-20.0) Serum Glucose 144 mg/dL (74-106) Lactic Acid Level 1.9 mmol/L (0.4-2.0) Calcium Level 10.2 mg/dL (8.7-10.4) Other Laboratory Tests 01/14/25 05:42 01/10/25 11:11 Brief Hx & Hospital Course: 69-year-old female had dental agitation and subsequently developed severe cellulitis of the right side of the face and admitted. Given Unasyn 3 g IV q.6 hours significantly improved history of diabetes and hypertension. Discussed with the patient's granddaughter akshat and the patient will be discharged to group home facility for IV antibiotics for two weeks Consults/Reason for consult None Operations or Procedures Maxillofacial CT Condition at Discharge: Fair Final Diagnosis/Problems List [place] [address] secondary to right facial infection improving Cellulitis right face secondary to recent dental extraction five days back: Unasyn 3g IV q.6 hours, pain medication Acute dehydration: IV fluids Diabetes Hypertension Discharge Disposition: Halfway Facility Discharge Instruct/Medications Diet: Cardiac 2g Na,low cholest Activity: Light activity Follow Up/Referral: Follow up with the longterm Medications: Unasyn IV for 3 weeks 39 (Time taken for discharge summary 39 minutes) Discharge Statement: "Patient was advised to return to the ER or call 911 if any headaches, dizziness, shortness of breath, chest pain, abdominal pain, bleeding, fevers, or worsening of medical condition. Patient was counseled about treatment plan, medications, possible side effects, patientverbalized understanding. All questions were answered to the best of my ability. This discharge took greater then 30 minutes in planning, reviewing documentation, counseling the patient, and discussing with other team members." ASSESSMENT ASSESSMENT Hospital Course Improved Assessment [place] [address] secondary to right facial infection improving Cellulitis right face secondary to recent dental extraction five days back: Unasyn 3g IV q.6 hours, pain medication Acute dehydration: IV fluids Diabetes Hypertension Date of Service: Jan 14, 2025 Billing Provider: SUSHILA ELKINS MD Common Visit Codes: [id number] DISCH DAY >30min SUSHILA ELKINS MD Jan 14, 2025 09:52
== END 2025-01-14 17:51 | DRG 872 ==
LOC: ER 09:35 → OVERFLOW 16:33 → CENTRAL 17:45
PROVIDERS: ADMIT Family Medicine; ATTEND Family Medicine
DX: A41.9 Sepsis, unspecified organism (principal); L03.211 Cellulitis of face; K04.7 Periapical abscess without sinus; E86.0 Dehydration; E11.9 Type 2 diabetes mellitus without complications; I10 Essential (primary) hypertension; Z79.899 Other long term (current) drug therapy
CPT/HCPCS: 36415; 70486; 80048; 83605; 85025; 87040; 96365; 96375; G0378; J2405; J3490